=== PATIENT | male | born 1980 | race Caucasian/White ===

== ENCOUNTER 2016-12-22 20:13 | Emergency (ER) | payer BC, OTHER ==
--- NOTE | 2016-12-22 20:25 | EDM.PDOC ---
ED HPI Trauma - General Chief Complaint: Lower Extremity Injury/Pain Stated Complaint: PT HURT RT FOOT Time Seen by Provider: 12/22/16 20:25 Source: Reports: Patient - History of Present Illness INITIAL COMMENTS - FREE TEXT/NARRATIVE: HISTORY AND PHYSICAL: History of present illness: [] Patient exiting a liver retractor tonight, upon stepping out of the tractor he developed acute right foot pain over her lateral fifth metatarsal, unable to bear weight due to pain, no fever nausea vomiting chills sweats No history of gout previous fracture on right fifth metatarsal Review of systems: As per history of present illness and below otherwise all systems reviewed and negative. Past medical history: As per history of present illness and as reviewed below otherwise noncontributory. Surgical history: As per history of present illness and as reviewed below otherwise noncontributory. Social history: No reported history of drug or alcohol abuse. Family history: As per history of present illness and as reviewed below otherwise noncontributory. Physical exam: HEENT: Atraumatic, normocephalic, pupils reactive, negative for conjunctival pallor or scleral icterus, mucous membranes moist, throat clear, neck supple, nontender, trachea midline. Lungs: Clear to auscultation, breath sounds equal bilaterally, chest nontender. Heart: S1S2, regular, negative for clicks, rubs, or JVD. Abdomen: Soft, nondistended, nontender. Negative for masses or hepatosplenomegaly. Negative for costovertebral tenderness. Pelvis: Stable nontender. Genitourinary: Deferred. Rectal: Deferred. Extremities: Atraumatic, negative for cords or calf pain. Neurovascular unremarkable. Neuro: Awake, alert, oriented. Cranial nerves II through XII unremarkable. Cerebellum unremarkable. Motor and sensory unremarkable throughout. Exam nonfocal. Right foot unaffected above the ankle no tenderness over medial or lateral malleoli malleoli, there is some redness and tenderness over the proximal right fifth metatarsal no warmth no open lesion or exudate entirely neurovascularly intact Diagnostics: [] Right foot 3 views CBC, uric acid Therapeutics: [] Toradol 60 mg IM Colcrys Indomethacin Impression: Acute gout [] Right foot pain Definitive disposition and diagnosis as appropriate pending reevaluation and review of above. Allergies/ADRs: Allergies No Known Allergies Allergy (Verified 12/22/16 20:26) Home Medications: Ambulatory Orders Adalimumab [Humira] 10 mg SQ ASDIRECTED 12/22/16 [Confirmed 12/22/16] Metoprolol Succinate 50 mg PO DAILY 12/22/16 [Confirmed 12/22/16] Pantoprazole Sodium 40 mg PO DAILY 12/22/16 [Confirmed 12/22/16] Sulindac 200 mg PO BID 12/22/16 [Confirmed 12/22/16] amLODIPine Besylate [Amlodipine Besylate] 10 mg PO DAILY 12/22/16 [Confirmed ] Review of Systems - Review of Systems Review Of Systems: ROS reveals no pertinent complaints other than HPI. Trauma Exam - Physical Exam Exam: See Below Course - Vital Signs Last Recorded V/S: Last Vital Signs Temp 36.7 C 12/22/16 20:23 Pulse 74 12/22/16 20:23 Resp 16 12/22/16 20:23 BP 139/88 12/22/16 20:23 Pulse Ox 95 12/22/16 20:23 - Orders/Labs/Meds Orders: Active Orders 24 hr Category Date Time Status Foot Comp Min 3V Rt [CR] Stat Exams 12/22/16 20:24 Taken Labs: Laboratory Tests 12/22/16 12/22/16 Range/Units 21:06 21:06 WBC 12.30 H (4.0-11.0) K/uL RBC 4.78 (4.50-5.90) M/uL Hgb 15.3 (13.0-17.0) g/dL Hct 45.0 (38.0-50.0) % MCV 94.1 (80.0-98.0) fL MCH 32.0 (27.0-32.0) pg MCHC 34.0 (31.0-37.0) g/dL RDW Std Deviation 46.1 (28.0-62.0) fl RDW Coeff of Omar 13 (11.0-15.0) % Plt Count 235 (150-400) K/uL MPV 11.50 (7.40-12.00) fL Neut % (Auto) 70.8 (48.0-80.0) % Lymph % (Auto) 21.8 (16.0-40.0) % [place] % (Auto) 6.6 (0.0-15.0) % Eos % (Auto) 0.6 (0.0-7.0) % Baso % (Auto) 0.2 (0.0-1.5) % Neut # (Auto) 8.7 H (1.4-5.7) K/uL Lymph # (Auto) 2.7 H (0.6-2.4) K/uL [place] # (Auto) 0.8 (0.0-0.8) K/uL Eos # (Auto) 0.1 (0.0-0.7) K/uL Baso # (Auto) 0.0 (0.0-0.1) K/uL Nucleated RBC % 0.0 /100WBC Nucleated RBCs # 0 K/uL Uric Acid 9.5 H (2.1-7.4) mg/dL Meds: Medications Discontinued Medications Generic Name Dose Route Start Last Admin Trade Name Freq PRN Reason Stop Dose Admin Ketorolac Tromethamine 60 mg 12/22/16 21:55 12/22/16 21:59 Toradol IM 12/22/16 21:56 60 mg ONETIME ONE Administration Departure - Departure Time of Disposition: 22:11 Disposition: Home, Self-Care 01 Condition: good Clinical Impression: Acute gout Forms: ED Department Discharge Additional Instructions: Medication as prescribed Gout diet as discussed Return if symptoms persist or worsen despite treatment Followup with primary care in 2 weeks sooner as needed [facility] - [facility] [address] [place] [address] The following information is given to patients seen in the emergency department who are being discharged to home. This information is to outline your options for follow-up care. We provide all patients seen in our emergency department with a follow-up referral. The need for follow-up, as well as the timing and circumstances, are variable depending upon the specifics of your emergency department visit. If you don't have a primary care physician on staff, we will provide you with a referral. We always advise you to contact your personal physician following an emergency department visit to inform them of the circumstance of the visit and for follow-up with them and/or the need for any referrals to a consulting specialist. The emergency department will also refer you to a specialist when appropriate. This referral assures that you have the opportunity for follow-up care with a specialist. All of these measure are taken in an effort to provide you with optimal care, which includes your follow-up. Under all circumstances we always encourage you to contact your private physician who remains a resource for coordinating your care. When calling for follow-up care, please make the office aware that this follow-up is from your recent emergency room visit. If for any reason you are refused follow-up, please contact the [facility] emergency department at and asked to speak to the emergency department charge nurse. - My Orders Last 24 Hours: My Active Orders 12/22/16 20:24 Foot Comp Min 3V Rt [CR] Stat - Assessment/Plan Last 24 Hours: My Active Orders 12/22/16 20:24 Foot Comp Min 3V Rt [CR] Stat
[2016-12-22] MEDS ORDERED: Ketorolac 60 MG/2 ML SDV IM ONE (21:55)
[2016-12-22 22:36] VITALS: BP 135/85
--- NOTE | 2016-12-24 17:49 | CR ---
EXAM DATE: 12/22/16 PATIENT'S AGE: 36 Patient: AMRITA GEORGE Facility: [place], [place] Site . Site : [id number] Study: XRay Extremity Right Foot [id number]/28/2017 8:53:42 PM Ordering Physician: Alisha De Jesus Final Report: Indication: Foot pain after trauma Technique: Three views right foot Comparison: None Findings: Bones: Alignment is normal. No fractures or bone lesions. Joint spaces: Unremarkable. Soft tissues: Unremarkable. Impression: Negative. Dictated by Desirae Shi MD @ Dec 22 2016 8:56PM (Electronic Signature) Report Signed by Proxy. KELVIN
== END 2016-12-22 22:25 | disposition home or self-care (01) ==
LOC: MW.ED 20:13
DX: M10.9 Gout, unspecified (principal)
CPT/HCPCS: 36415; 73630; 84550; 85025; 96372; 99283; J1885